=== PATIENT | female | born 1935 | race Caucasian/White ===

== ENCOUNTER 2022-02-03 09:19 | Emergency (ER) | payer MEDICARE, OTHER, SELFPAY ==
--- NOTE | ~2022-02-03 | XR_ITS ---
EXAMINATION: XR LUMBOSACRAL SPINE CLINICAL INFORMATION: Status post fall, low back pain. COMPARISON: None TECHNIQUE: Three views of the lumbosacral spine. FINDINGS: Mild lumbar levoscoliosis is seen with apex at L2-3. There is generalized osteopenia. Mild to moderate multilevel degenerative disc disease is seen. There is mild grade 1 anterolisthesis of L4 over L5. Moderate to severe atherosclerosis is seen in the abdominal aorta and iliac vessels. Bilateral common iliac stents are noted in place. XR/XR lumbar spine 2-3V IMPRESSION: Mild lumbar levoscoliosis and mild to moderate multilevel generative changes with generalized osteopenia. No acute abnormality.
--- NOTE | ~2022-02-03 | CT_ITS ---
EXAMINATION: CT CERVICAL SPINE WITHOUT CONTRAST CLINICAL INFORMATION: History of fall with head strike. COMPARISON: None TECHNIQUE: Multidetector CT imaging examination of the cervical spine is performed. Axial images and multiplanar reformatted images are reviewed. This CT examination was performed using dose optimization techniques as appropriate, variously including the following: *Automated exposure control *Adjustment of mA and/or kV according to patient size (this includes techniques or standardized protocols for targeted exams where dose is matched to indication/reason for exam; i.e. extremities or head) *Use of iterative reconstruction technique DLP: 891 mGy-cm (for CT exams of the head and cervical spine) FINDINGS: Bones are diffusely osteopenic. The skull base, dens and atlantodental articulation are intact. There is a right mastoid effusion. The cervical vertebra are normal in height. No acute fractures in the anterior or posterior elements. No prevertebral soft tissue swelling. The facet arthropathy at C7-T1 is associated with 0.2 cm of degenerative anterolisthesis of C7 on T1. Otherwise, cervical vertebra have normal alignment. Chondrocalcinosis of the spine and sternoclavicular joints. No significant narrowing of the central spinal canal. The degenerative disc space narrowing is mild at C4-C5 and C5-C6, and moderate at C6-C7. The hypertrophied uncovertebral joints at C6-C7 cause moderate bilateral neural foraminal stenosis. No fluid collection or hematoma in the neck. No acute findings within the visualized emphysematous lung apices. Thyroid gland is unremarkable. CT/CT cervical spine wo IV con IMPRESSION: * No acute findings within the degenerated cervical spine. * No evidence of fracture, traumatic subluxation or prevertebral soft tissue swelling. * Mild degenerative anterolisthesis is noted at C7-T1. * Moderate degenerative disc disease and uncovertebral joint hypertrophy at C6-C7. * Emphysematous lung disease.
--- NOTE | ~2022-02-03 | CT_ITS ---
EXAMINATION: CT HEAD WITHOUT CONTRAST CLINICAL INFORMATION: Status post fall with head laceration. COMPARISON: None TECHNIQUE: Contiguous axial imaging was performed from the skull base to vertex without intravenous administration of contrast. Coronal and sagittal reformatted images were obtained. This CT examination was performed using dose optimization techniques as appropriate, variously including the following: *Automated exposure control *Adjustment of mA and/or kV according to patient size (this includes techniques or standardized protocols for targeted exams where dose is matched to indication/reason for exam; i.e. extremities or head) *Use of iterative reconstruction technique DLP: 594.81 mGy-cm FINDINGS: There is mild widening of the cortical sulci and associated ventriculomegaly. Mild to moderate periventricular microvascular changes are seen. The lateral ventricles are symmetrical. The third and fourth ventricles are in their normal midline position. The basilar and prepontine cisterns are unremarkable. There is no acute intra or extracerebral abnormality. There is no mass effect or midline shift. There is a small right posterior parietal subgaleal hematoma and overlying subcutaneous changes. No underlying abnormality. Sections through the bony calvarium are unremarkable. The orbits are intact. The paranasal sinuses are clear. The mastoid air cells hypoaeration on the right with opacified air cells. The left mastoid air cells are unremarkable. CT/CT head/brain wo IV con IMPRESSION: 1. No acute intracranial pathology. 2. Small right posterior subgaleal hematoma in infiltrative changes without acute underlying abnormality.
[2022-02-03 09:21] VITALS: BP 128/90; BP 217/84; PULSE 78; PULSE 95; RESP 20; TEMP 36.5; O2SAT 100; O2SAT 98; BMI 25.6
--- NOTE | 2022-02-03 09:27 | ECG_ITS ---
Test Reason : fall Blood Pressure : / mmHG Vent. Rate : 078 BPM Atrial Rate : 078 BPM P-R Int : 186 ms QRS Dur : 070 ms QT Int : 412 ms P-R-T Axes : 087 075 127 degrees QTc Int : 469 ms Normal sinus rhythm ST & T wave abnormality, consider lateral ischemia Abnormal ECG When compared with ECG of 07-SEP-2019 10:08, T wave inversion more evident in Lateral leads Referred By: Nette Antunez Electronically Signed By:FILIBERTO GARCIA
--- NOTE | 2022-02-03 09:29 | ED_ITS ---
HPI - Fall General Chief Complaint: Fall Stated Complaint: FALL,-THINNERS,+HS,-LOC,+COLLAR Time Seen by Provider: 02/03/22 09:27 Source: patient and EMS Mode of arrival: EMS Limitations: no limitations History of Present Illness HPI Narrative: 86 yo female with history of COPD, rheumatoid arthritis, HTN, HLD, CAD s/p CABG, SBO who presents to the ER from SNF via EMS for evaluation of a fall earlier this morning resulting in a posterior head laceration. Patient reports she was standing with her walker waiting to walk into the bathroom when she stepped backwards, lost her balance and fell backward. She fell onto her bottom and then fell back and hit the back of her head. She did not lose consciousness and she is not on blood thinners. She states her low back hurts since the fall and she has a bleeding cut on the back of her head. No other injuries. MD complaint: fall Onset (ago): minute(s) Fall from: standing Fall witnessed: yes, by living facility staff Place [facility] occurred: [facility] Loss of consciousness: none Prolonged down time: no Symptoms prior to fall: none Context: tripped/slipped (lost balance when stepping backward) Location of injury: head Severity: moderate Severity scale (1-10): 6 Quality: aching Associated symptoms (after fall): headache and other (low back pain) Related Data Previous Rx's Medication Instructions Recorded levofloxacin 250 mg tablet 250 mg PO DAILY #6 tabs 02/03/22 Allergies Allergy/AdvReac Type Severity Reaction Status Date / Time cefaclor [From CECLOR] Allergy Unknown UNKNOWN Unverified 01/19/20 17:21 Penicillins [PCN] Allergy Unknown UNKNOWN Unverified 01/19/20 17:21 tiotropium Allergy Unknown UNKNOWN Unverified 01/19/20 17:21 [From SPIRIVA WITH HANDIHALER] Review of Systems Review of Systems: Constitutional: No Fever, No Chills ENT/Mouth: No sore throat, No Rhinorrhea, No Swallowing Difficulty Eyes: No Eye Pain, No Swelling, No Redness Cardiovascular: No Chest Pain, No SOB, No Orthopnea, No Edema Respiratory: No Cough, No Sputum, No Wheezing, No dyspnea Gastrointestinal: + Nausea, No Vomiting, No Diarrhea, No abdominal Pain, No Hematochezia, No Melena Genitourinary: No Dysuria, No Urinary Frequency, No Hematuria Musculoskeletal: No joint pain, No Myalgias Skin: No Skin Lesions, No rash Neuro: + Weakness, No Numbness, No Dizziness, + Headache Psych: No Anxiety/Panic, No Depression Heme/Lymph: No Bruising, No Lymphadenopathy Endocrine: No Polyuria, No [facility]yd[facility]ia [facility] Social History Social History Advance Directives: No Advance Directives Information Provided: Yes Physical Exam Vital Signs: Vital Signs: Last Vital Signs Temp 97.7 F 02/03/22 09:21 Pulse 76 02/03/22 13:40 Resp 16 02/03/22 13:40 BP 190/77 H 02/03/22 13:40 Pulse Ox 97 02/03/22 13:40 O2 Del Method 02/03/22 13:40 O2 Flow Rate 2 02/03/22 10:11 Oxygen Flow Rate 2 02/03/22 09:21 BMI result Body Mass Index 25.6 Appearance: Alert elderly female in cervical collar on the stretcher. Oriented X3. No acute distress. Head: large hematoma right occipital area with small laceration, active oozing, tender Eyes: Pupils equal, round and reactive to light. ENT: Pharynx normal. Neck: cervical collar in place, no posterior tenderness. CVS: Normal heart rate and rhythm. Pulses normal. Respiratory: No respiratory distress. Breath sounds normal. Abdomen: Soft and nontender. +BS x4 Skin: Skin warm and dry. Normal skin color. Normal skin turgor. No rashes. Extremities: No lower extremity edema. Weak LE bilaterally, unable to lift off of the bed. Neuro: Oriented X 3. LE weakness bilaterally. equal head of it strength, normal speech, no facial droop Course Course Course Narrative: 86-year-old female presents to the ER for evaluation of a fall with head strike. She has a small laceration with 80 large hematoma in the right occipital area. Will require nannette for closure. She is not on anticoagulation and did not lose consciousness. CT head and neck are pending. Will also check EKG and troponin, she was complaining of chest pain last night for which she got nitroglycerin sublingual with resolution. She has no chest pain at this time. She reports some mild nausea. Will get lab workup and monitor closely. Reevaluation(s) Reevaluation #1: CT head:1. No acute intracranial pathology. 2. Small right posterior subgaleal hematoma in infiltrative changes without acute underlying abnormality. CT cervical spine: *? No acute findings within the degenerated cervical spine. *? No evidence of fracture, traumatic subluxation or prevertebral soft tissue swelling. *? Mild degenerative anterolisthesis is noted at C7-T1. *? Moderate degenerative disc disease and uncovertebral joint hypertrophy at C6- C7. *? Emphysematous lung disease. Cervical collar removed and no c-spine tenderness. Normal ROM of the neck. Upon further inspection patient has a small superficial laceration to the right occipitial/parietal area that does not require repair, no active bleeding. XR lumbar spine pending. UA pending. Reevaluation #2: XR lumbar spine: Mild lumbar levoscoliosis and mild to moderate multilevel generative changes with generalized osteopenia. No acute abnormality. Reevaluation #3: UA positive for infection. no leukocytosis or fevers. will start on oral levaquin given her abx allergies. 1st dose given here. her oral antihypertensives have been ordered as well. will arrange transport back to SNF. pt updated on plan of care. MDM - Fall Lab Data Result diagrams: 02/03/22 10:02 02/03/22 12:28 Labs: Lab Results 02/03/22 02/03/22 02/03/22 Range/Units 10:02 10:02 10:02 WBC 9.4 (4.8-10.8) X10*3/uL RBC 4.07 L (4.20-5.50) X10*6/uL Hgb 11.8 L (12.0-16.0) g/dl Hct 36.9 L (37.0-47.0) % MCV 90.7 (80.0-98.0) fL MCH 29.0 (27.0-33.0) pg MCHC 32.0 (31.0-35.0) g/dl RDW 14.4 (11.0-16.0) % Plt Count 209 (160-400) X10*3/uL MPV 10.5 (9.4-12.3) fL Immature Gran % (Auto) 0.6 H (0.0-0.4) % Neut % (Auto) 66.3 (45-73) % Lymph % (Auto) 22.3 (20-40) % [place] % (Auto) 7.5 (2-11) % Eos % (Auto) 2.8 (0-4) % Baso % (Auto) 0.5 (0-2) % Lymph # (Auto) 2.1 (1.2-4.9) X10*3/uL [place] # (Auto) 0.7 (0.1-1.2) X10*3/uL Eos # (Auto) 0.3 (0.0-0.4) X10*3/uL Baso # (Auto) 0.1 (0.0-0.2) X10*3/uL Abs Immat Gran (auto) 0.06 H (0.00-0.03) X10*3/uL Absolute Neuts (auto) 6.2 (2.0-8.3) x10*3/uL Absolute Nucleated RBC 0.000 (0.0-0.012) X10*3/uL Nucleated RBC % (auto) 0.0 (0.0-0.2) /100WBC PT 11.1 (10.0-13.1) SEC INR 1.0 (0.9-1.1) APTT 26.1 (26.0-36.4) SEC Sodium (135-145) mmol/L Potassium (3.3-5.1) mmol/L Chloride (96-108) mmol/L Carbon Dioxide (22-29) mmol/L Anion Gap (12-20) BUN (9-16) mg/dL Creatinine (0.5-1.4) mg/dL Estim Creat Clear Calc Estimated GFR Random Glucose (60-115) mg/dL Calcium (8.4-10.2) mg/dL Magnesium (1.6-2.6) mg/dL Total Bilirubin (0.0-1.0) mg/dL Direct Bilirubin (0.0-0.5) mg/dL AST (5-31) U/L ALT (0-31) U/L Alkaline Phosphatase (39-117) U/L Troponin I High Sens < 3.5 (<3.5-17.0) ng/L Total Protein (6.5-8.0) g/dL Albumin (3.5-5.0) g/dL Urine Color Urine Appearance Urine pH (5.0-9.0) Ur Specific [place] (1.005-1.025) Urine Protein (Neg-Trace) mg/dL Urine Glucose (UA) (Negative) mg/dL Urine Ketones (Negative) mg/dL Urine Blood (Negative) Urine Nitrite (Negative) Ur Leukocyte Esterase (Negative) Urine RBC (0-2) /HPF Urine WBC (0-5) /HPF Ur Squamous Epith Cells (0-2) /HPF Urine Bacteria (None Seen) Hyaline Casts (0-2) /LPF COVID-19 ([facility]) (Negative) COVID-19 Clin Com 02/03/22 02/03/22 02/03/22 Range/Units 10:02 12:28 14:05 WBC (4.8-10.8) X10*3/uL RBC (4.20-5.50) X10*6/uL Hgb (12.0-16.0) g/dl Hct (37.0-47.0) % MCV (80.0-98.0) fL MCH (27.0-33.0) pg MCHC (31.0-35.0) g/dl RDW (11.0-16.0) % Plt Count (160-400) X10*3/uL MPV (9.4-12.3) fL Immature Gran % (Auto) (0.0-0.4) % Neut % (Auto) (45-73) % Lymph % (Auto) (20-40) % [place] % (Auto) (2-11) % Eos % (Auto) (0-4) % Baso % (Auto) (0-2) % Lymph # (Auto) (1.2-4.9) X10*3/uL [place] # (Auto) (0.1-1.2) X10*3/uL Eos # (Auto) (0.0-0.4) X10*3/uL Baso # (Auto) (0.0-0.2) X10*3/uL Abs Immat Gran (auto) (0.00-0.03) X10*3/uL Absolute Neuts (auto) (2.0-8.3) x10*3/uL Absolute Nucleated RBC (0.0-0.012) X10*3/uL Nucleated RBC % (auto) (0.0-0.2) /100WBC PT (10.0-13.1) SEC INR (0.9-1.1) APTT (26.0-36.4) SEC Sodium 141 (135-145) mmol/L Potassium 3.9 (3.3-5.1) mmol/L Chloride 100 (96-108) mmol/L Carbon Dioxide 31 H (22-29) mmol/L Anion Gap 14 (12-20) BUN 11 (9-16) mg/dL Creatinine 0.68 (0.5-1.4) mg/dL Estim Creat Clear Calc 41.1 Estimated GFR > 60 Random Glucose 108 (60-115) mg/dL Calcium 9.7 (8.4-10.2) mg/dL Magnesium 1.7 (1.6-2.6) mg/dL Total Bilirubin 0.4 (0.0-1.0) mg/dL Direct Bilirubin 0.2 (0.0-0.5) mg/dL AST 20 (5-31) U/L ALT 16 (0-31) U/L Alkaline Phosphatase 74 (39-117) U/L Troponin I High Sens (<3.5-17.0) ng/L Total Protein 7.1 (6.5-8.0) g/dL Albumin 4.1 (3.5-5.0) g/dL Urine Color Yellow Urine Appearance Cloudy Urine pH 8.0 (5.0-9.0) Ur Specific [place] 1.015 (1.005-1.025) Urine Protein 30 (1+) H (Neg-Trace) mg/dL Urine Glucose (UA) Negative (Negative) mg/dL Urine Ketones Trace (Negative) mg/dL Urine Blood Trace H (Negative) Urine Nitrite Positive H (Negative) Ur Leukocyte Esterase Large (3+) H (Negative) Urine RBC 3-5 H (0-2) /HPF Urine WBC >50 H (0-5) /HPF Ur Squamous Epith Cells 3-5 (0-2) /HPF Urine Bacteria 4+ (None Seen) Hyaline Casts 0-2 (0-2) /LPF COVID-19 ([facility]) Negative (Negative) COVID-19 Clin Com See Note Discharge Plan Discharge Clinical Impression: Laceration of head, Contusion of lower back, Acute UTI Patient Disposition: er [facility] Instructions: Acute Low Back Pain (ED), Head Laceration (ED) Additional Instructions: Your CT scans and x-rays today did not show any bleeding or fractures. Your lab workup was unremarkable. Recommend tylenol around the clock for pain Use ice to the bump on your head to help decrease swelling Your urine test showed infection Given your antibiotic allergies - recommend levofloxacin 250 mg for the next 6 days. you were given 1st dose today in the ER. Prescriptions: New levofloxacin 250 mg tablet 250 mg PO DAILY Qty: 6 0RF Referrals: Ziggy Calvillo MD [Primary Care Provider] -
--- NOTE | 2022-02-03 09:55 | PC.NURSE ---
Pt alert and oriented x3. Respirations even and unlabored on 2L baseline. C-Collar in place for precaution.
[2022-02-03 10:07] LABS: MANUAL DIFF FLAG NO
[2022-02-03 10:09] LABS: Basophils Absolute Auto 0.1 X10*3/uL (0.0-0.2); Basophils Percent Auto 0.5 % (0-2); Eosinophils Absolute Auto 0.3 X10*3/uL (0.0-0.4); Eosinophils Percent Auto 2.8 % (0-4); Hematocrit 36.9 % (37.0-47.0); Hemoglobin 11.8 g/dl (12.0-16.0); Imm Gran Abs Auto 0.06 X10*3/uL (0.00-0.03); Imm Gran Pct Auto 0.6 % (0.0-0.4); Lymphocytes Absolute Auto 2.1 X10*3/uL (1.2-4.9); Lymphocytes Percent Auto 22.3 % (20-40); Mean Corpuscular Volume 90.7 fL (80.0-98.0); Mean Platelet Volume 10.5 fL (9.4-12.3); Monocytes Absolute Auto 0.7 X10*3/uL (0.1-1.2); Monocytes Percent Auto 7.5 % (2-11); Neutrophils Absolute Auto 6.2 x10*3/uL (2.0-8.3); Neutrophils Percent Auto 66.3 % (45-73); Platelet Count 209 X10*3/uL (160-400); Red Blood Count 4.07 X10*6/uL (4.20-5.50); Red Cell Distribution Width 14.4 % (11.0-16.0); White Blood Count 9.4 X10*3/uL (4.8-10.8)
[2022-02-03 10:11] VITALS: BP 199/73; PULSE 75; RESP 26; O2SAT 100
[2022-02-03 10:31] LABS: Prothrombin Time 11.1 SEC (10.0-13.1)
[2022-02-03 10:33] LABS: COVID-19 Test Negative (Negative); IDNOW Serial# 16C4AD1C
[2022-02-03 10:34] LABS: Partial Thromboplastin Time 26.1 SEC (26.0-36.4)
[2022-02-03 10:35] LABS: Troponin-I High Sensitivity < 3.5 ng/L (<3.5-17.0)
[2022-02-03 12:54] LABS: Alanine Aminotransferase 16 U/L (0-31); Albumin Level 4.1 g/dL (3.5-5.0); Alkaline Phosphatase 74 U/L (39-117); Anion Gap 14 (12-20); Aspartate Amino Transferase 20 U/L (5-31); Bilirubin Direct 0.2 mg/dL (0.0-0.5); Bilirubin Total 0.4 mg/dL (0.0-1.0); Blood Urea Nitrogen 11 mg/dL (9-16); Calcium 9.7 mg/dL (8.4-10.2); Carbon Dioxide 31 mmol/L (22-29); Chloride 100 mmol/L (96-108); Creatinine Clr Calc Pharmacy 41.1; Estimated Glomerular Filt Rate > 60; Glucose Random 108 mg/dL (60-115); Magnesium 1.7 mg/dL (1.6-2.6); Potassium 3.9 mmol/L (3.3-5.1); Sodium 141 mmol/L (135-145); Total Protein 7.1 g/dL (6.5-8.0)
[2022-02-03] MEDS: Acetaminophen 325 MG TABLET 975 MG PO (13:32)
[2022-02-03 13:40] VITALS: BP 190/77; PULSE 76; RESP 16; O2SAT 97
[2022-02-03] MEDS: Metoprolol Tartrate 25 MG TABLET PO (13:55)
[2022-02-03] MEDS: amLODIPine Besylate 2.5 MG TABLET PO (14:00)
[2022-02-03 14:12] LABS: Appearance Urine Cloudy; Color Urine Yellow; Glucose Urine UA Negative (Negative); Leukocyte Esterase Urine Large (3+) (Negative); Nitrite Urine Positive (Negative); Specific Gravity - Urine 1.015 (1.005-1.025); UMIC TRIGGER UACC YES; Urine Blood Trace (Negative); Urine Ketones Trace mg/dL (Negative); Urine Protein 30 (1+) mg/dL (Neg-Trace)
[2022-02-03 14:19] LABS: Bacteria Urine 4+ (None Seen); Hyaline Casts Urine 0-2 /LPF (0-2); UACC Culture Trigger YES; WBC Urine >50 /HPF (0-5)
[2022-02-03] MEDS: levoFLOXacin 250 MG TABLET PO (15:06)
== END 2022-02-03 15:21 | disposition skilled nursing facility (03) ==
PROVIDERS: Physician Assistant; Emergency Provider Emergency Medicine; PCP Family Medicine
DX: S01.01XA Laceration without foreign body of scalp, initial encounter (principal); S30.0XXA Contusion of lower back and pelvis, initial encounter; W17.89XA Other fall from one level to another, initial encounter; N39.0 Urinary tract infection, site not specified; Y93.89 Activity, other specified; Y92.121 Bathroom in nursing home as the place of occurrence of the external cause; Y99.9 Unspecified external cause status; Z20.822 Contact with and (suspected) exposure to COVID-19
CPT/HCPCS: 70450; 72100; 72125; 80048; 80076; 81001; 83735; 84484; 85025; 85610; 85730; 87086; 87635; 93005; 99284; 99285

== ENCOUNTER 2023-04-06 00:30 | Emergency (ER) | payer MEDICARE, MEDICAID, OTHER, SELFPAY ==
--- NOTE | 2023-04-06 | ECG_ITS ---
Test Reason : chest pain Blood Pressure : / mmHG Vent. Rate : 078 BPM Atrial Rate : 078 BPM P-R Int : 184 ms QRS Dur : 062 ms QT Int : 414 ms P-R-T Axes : 075 068 102 degrees QTc Int : 471 ms Normal sinus rhythm Septal infarct , age undetermined ST depression lateral leads Abnormal ECG No significant changes when compared with the previous EKG of feb 03 2022 Referred By: Generic ED Physician Electronically Signed By:MEDARDO UPTON
--- NOTE | ~2023-04-06 | XR_ITS ---
EXAMINATION: XR CHEST CLINICAL INFORMATION: Chest pain COMPARISON: 09/20/2019 TECHNIQUE: 2 views of the chest were obtained. FINDINGS: Lung volumes are symmetric. Bibasilar aeration appears overall improved compared to prior. There is mild residual streaky left basilar opacity favoring atelectasis. No evidence of pneumothorax, significant pleural effusion, or overt pulmonary edema. Cardiac size is within normal limits. Calcification is present at the aortic arch. No acute osseous findings are seen. XR/XR chest 2V IMPRESSION: Improved bibasilar aeration compared to prior with mild residual left basilar atelectasis.
[2023-04-06 00:50] VITALS: BP 122/80; PULSE 80; O2SAT 96; BMI 22.2
[2023-04-06 00:53] VITALS: BP 124/54; PULSE 79; RESP 29; O2SAT 94
[2023-04-06 01:07] VITALS: PULSE 75
[2023-04-06 01:28] LABS: Alanine Aminotransferase 15 U/L (0-31); Albumin Level 3.7 g/dL (3.5-5.0); Alkaline Phosphatase 72 U/L (39-117); Anion Gap 15 (12-20); Aspartate Amino Transferase 28 U/L (5-31); Bilirubin Total 0.3 mg/dL (0.0-1.0); Blood Urea Nitrogen 17 mg/dL (9-16); Calcium 9.1 mg/dL (8.4-10.2); Carbon Dioxide 20 mmol/L (22-29); Chloride 107 mmol/L (96-108); Creatinine Clr Calc Pharmacy 32.6; Estimated Glomerular Filt Rate > 60; Glucose Random 97 mg/dL (60-115); Potassium 4.9 mmol/L (3.3-5.1); Sodium 137 mmol/L (135-145); Total Protein 7.6 g/dL (6.5-8.0)
[2023-04-06 01:30] LABS: Troponin-I High Sensitivity 5.6 ng/L (<3.5-17.0)
[2023-04-06 01:48] LABS: Influenza A PCR NEGATIVE (Negative); Influenza B PCR NEGATIVE (Negative); Resp Syncy Virus RNA Qual PCR NEGATIVE (Negative); SARS COV2 PCR INHOUSE NEGATIVE (Negative)
--- NOTE | 2023-04-06 02:08 | PC.NURSE ---
call opal robison/ any updates/ questions: [phone]
[2023-04-06 02:22] LABS: Basophils Absolute Auto 0.1 X10*3/uL (0.0-0.2); Basophils Percent Auto 0.8 % (0-2); Eosinophils Absolute Auto 0.3 X10*3/uL (0.0-0.4); Eosinophils Percent Auto 3.4 % (0-4); Hematocrit 34.7 % (37.0-47.0); Hemoglobin 11.2 g/dl (12.0-16.0); Imm Gran Abs Auto 0.02 X10*3/uL (0.00-0.03); Imm Gran Pct Auto 0.2 % (0.0-0.4); Lymphocytes Absolute Auto 3.1 X10*3/uL (1.2-4.9); Lymphocytes Percent Auto 34.5 % (20-40); Mean Corpuscular HGB Conc 32.3 g/dl (31.0-35.0); Mean Corpuscular Hemoglobin 30.4 pg (27.0-33.0); Mean Platelet Volume 11.3 fL (9.4-12.3); Monocytes Absolute Auto 0.9 X10*3/uL (0.1-1.2); Monocytes Percent Auto 9.8 % (2-11); Neutrophils Absolute Auto 4.6 x10*3/uL (2.0-8.3); Neutrophils Percent Auto 51.3 % (45-73); Platelet Count 237 X10*3/uL (160-400); Red Blood Count 3.69 X10*6/uL (4.20-5.50); Red Cell Distribution Width 14.4 % (11.0-16.0)
[2023-04-06 02:28] LABS: MANUAL DIFF FLAG NO
--- NOTE | 2023-04-06 03:05 | ED.CHESTPAIN ---
HPI - Chest Pain General Chief Complaint: Chest Pain Stated Complaint: Chest pain Time Seen by Provider: 04/06/23 03:05 History of Present Illness HPI narrative: The patient is an 87-year-old woman who lives at the [facility]. She is on 2 L home oxygen. She is nonambulatory at baseline. I believe she is on rivaroxaban. She has a history of an NSTEMI in the past. Over the last several nights she has had episodes of chest discomfort that have improved with nitroglycerin. These episodes have not last very long because they give her the nitroglycerin quickly. Tonight she had another episode and the staff at the residential called 911. Apparently when paramedics arrived she had it at a 10 pain. She was given nitroglycerin by the facility just before leaving the facility and her pain had resolved by the time she got here she denies shortness of breath. She has had a chronic cough for the last few months. She has some redness to the left eye that she says has been present for about a week or 2. She says she has been taking antibiotic eyedrops at the facility. Related Data Previous Rx's Medication Instructions Recorded levofloxacin 250 mg tablet 250 mg PO DAILY #6 tabs 02/03/22 Allergies Allergy/AdvReac Type Severity Reaction Status Date / Time cefaclor [From CECLOR] Allergy Unknown UNKNOWN Verified 04/06/23 00:53 Penicillins [PCN] Allergy Unknown UNKNOWN Verified 04/06/23 00:53 tiotropium Allergy Unknown UNKNOWN Verified 04/06/23 00:53 [From SPIRIVA WITH HANDIHALER] [facility] Social History Social History Advance Directives: No Advance Directives Information Provided: No Physical Exam Vital Signs: Vital Signs: Last Vital Signs Temp 98.0 F 04/06/23 07:12 Pulse 70 04/06/23 07:12 Resp 22 H 04/06/23 07:12 BP 136/58 L 04/06/23 07:12 Pulse Ox 99 04/06/23 07:12 O2 Del Method Nasal Cannula 04/06/23 07:12 O2 Flow Rate 2 04/06/23 07:12 BMI result Body Mass Index 22.2 Const: Other: The patient is a frail, chronically ill-appearing 87-year-old who was awake and alert coherent. He does not appear in any distress or discomfort. HEENT: Other: Face is symmetrical. Mucous membranes moist. Eyes: Other: Pupils are round equal. Left eye shows some mild conjunctival injection and discharge. Neck: Other: No JVD Resp: Other: Lungs are clear bilaterally Cardio: Other: The patient has a regular rate and rhythm without murmur GI: Other: The abdomen is soft nontender Skin: Other: Skin is dry and unremarkable Neuro: Other: Patient is awake and alert and oriented. Cranial nerves are grossly intact. She moves her extremities symmetrically. No focal findings. Extrem: Other: No calf swelling or tenderness or asymmetry. Medical Decision Making Medical Decision Making [facility] Narrative: The patient is a very pleasant 87-year-old who lives at the [facility] where she has lived for the last 3 years. She is nonambulatory. She has been having episodes of chest pain seemed to respond to nitroglycerin. Her EKG today is not obviously ischemic and her pain is resolved entirely. Her troponin is flat. My suspicion for an acute coronary syndrome is low. I think she may return to her residential. She should follow up with her hot plate press operator and regular doctor. Return if worse. Lab Data 04/06/23 02:05 04/06/23 01:04 Labs: Lab Results 04/06/23 04/06/23 04/06/23 Range/Units 01:03 01:04 02:05 WBC 9.0 (4.8-10.8) X10*3/uL RBC 3.69 L (4.20-5.50) X10*6/uL Hgb 11.2 L (12.0-16.0) g/dl Hct 34.7 L (37.0-47.0) % MCV 94.0 (80.0-98.0) fL MCH 30.4 (27.0-33.0) pg MCHC 32.3 (31.0-35.0) g/dl RDW 14.4 (11.0-16.0) % Plt Count 237 (160-400) X10*3/uL MPV 11.3 (9.4-12.3) fL Immature Gran % (Auto) 0.2 (0.0-0.4) % Neut % (Auto) 51.3 (45-73) % Lymph % (Auto) 34.5 (20-40) % [place] % (Auto) 9.8 (2-11) % Eos % (Auto) 3.4 (0-4) % Baso % (Auto) 0.8 (0-2) % Lymph # (Auto) 3.1 (1.2-4.9) X10*3/uL [place] # (Auto) 0.9 (0.1-1.2) X10*3/uL Eos # (Auto) 0.3 (0.0-0.4) X10*3/uL Baso # (Auto) 0.1 (0.0-0.2) X10*3/uL Abs Immat Gran (auto) 0.02 (0.00-0.03) X10*3/uL Absolute Neuts (auto) 4.6 (2.0-8.3) x10*3/uL Absolute Nucleated RBC 0.000 (0.0-0.012) X10*3/uL Nucleated RBC % (auto) 0.0 (0.0-0.2) /100WBC Sodium 137 (135-145) mmol/L Potassium 4.9 D (3.3-5.1) mmol/L Chloride 107 (96-108) mmol/L Carbon Dioxide 20 L (22-29) mmol/L Anion Gap 15 (12-20) BUN 17 H (9-16) mg/dL Creatinine 0.77 (0.5-1.4) mg/dL Estim Creat Clear Calc 32.6 Estimated GFR > 60 Random Glucose 97 (60-115) mg/dL Calcium 9.1 D (8.4-10.2) mg/dL Total Bilirubin 0.3 (0.0-1.0) mg/dL AST 28 (5-31) U/L ALT 15 (0-31) U/L Alkaline Phosphatase 72 (39-117) U/L Troponin I High Sens 5.6 (<3.5-17.0) ng/L Total Protein 7.6 (6.5-8.0) g/dL Albumin 3.7 (3.5-5.0) g/dL Influenza Type A (PCR) NEGATIVE (Negative) Influenza Type B (PCR) NEGATIVE (Negative) RSV RNA Qual (PCR) NEGATIVE (Negative) SARS-CoV-2 RNA (RT-PCR) NEGATIVE (Negative) 04/06/23 Range/Units 03:37 WBC (4.8-10.8) X10*3/uL RBC (4.20-5.50) X10*6/uL Hgb (12.0-16.0) g/dl Hct (37.0-47.0) % MCV (80.0-98.0) fL MCH (27.0-33.0) pg MCHC (31.0-35.0) g/dl RDW (11.0-16.0) % Plt Count (160-400) X10*3/uL MPV (9.4-12.3) fL Immature Gran % (Auto) (0.0-0.4) % Neut % (Auto) (45-73) % Lymph % (Auto) (20-40) % [place] % (Auto) (2-11) % Eos % (Auto) (0-4) % Baso % (Auto) (0-2) % Lymph # (Auto) (1.2-4.9) X10*3/uL [place] # (Auto) (0.1-1.2) X10*3/uL Eos # (Auto) (0.0-0.4) X10*3/uL Baso # (Auto) (0.0-0.2) X10*3/uL Abs Immat Gran (auto) (0.00-0.03) X10*3/uL Absolute Neuts (auto) (2.0-8.3) x10*3/uL Absolute Nucleated RBC (0.0-0.012) X10*3/uL Nucleated RBC % (auto) (0.0-0.2) /100WBC Sodium (135-145) mmol/L Potassium (3.3-5.1) mmol/L Chloride (96-108) mmol/L Carbon Dioxide (22-29) mmol/L Anion Gap (12-20) BUN (9-16) mg/dL Creatinine (0.5-1.4) mg/dL Estim Creat Clear Calc Estimated GFR Random Glucose (60-115) mg/dL Calcium (8.4-10.2) mg/dL Total Bilirubin (0.0-1.0) mg/dL AST (5-31) U/L ALT (0-31) U/L Alkaline Phosphatase (39-117) U/L Troponin I High Sens 5.1 (<3.5-17.0) ng/L Total Protein (6.5-8.0) g/dL Albumin (3.5-5.0) g/dL Influenza Type A (PCR) (Negative) Influenza Type B (PCR) (Negative) RSV RNA Qual (PCR) (Negative) SARS-CoV-2 RNA (RT-PCR) (Negative) Independent Interpretation I performed an independent interpretation of an: EKG Interpretation: EKG at 00:43 shows normal sinus rhythm at 78 beats per minute. No obvious acute ischemic changes. No previous EKGs available for comparison. The EMR suggestive should be and EKG available for comparison from 02/03/2022 but the EMR does not open this for me to visualize. Discharge Plan Discharge Clinical Impression: Chest pain Patient Disposition: [facility] Transfer Details: BACK TO [facility] Additional Instructions: Your testing today seems quite reassuring. There is no sign of a heart attack or other obvious acute process. Please continue your regular medications. Please consider following up with your hot plate press operator. Return to the emergency room if worse. Prescriptions: No Action levofloxacin 250 mg tablet 250 mg PO DAILY Qty: 6 0RF Referrals: [facility] [Outside] Ziggy Calvillo MD [Primary Care Provider] - Sharif Abreu MD [Physician] -
[2023-04-06 03:30] VITALS: BP 145/52; PULSE 71; RESP 26; O2SAT 99
[2023-04-06 04:02] LABS: Troponin-I High Sensitivity 5.1 ng/L (<3.5-17.0)
--- NOTE | 2023-04-06 04:30 | MHC.EDTECH ---
CALL OUT TO [facility]ET AT [phone] TO BOOK TRANSPORT FOR PT BACK TO [facility], ESTIMATED ETA GIVEN WAS [phone]
[2023-04-06 07:12] VITALS: BP 136/58; PULSE 70; RESP 22; TEMP 36.7; O2SAT 99
--- NOTE | 2023-04-06 07:13 | PC.NURSE ---
pt sleeping, wakes to verbal stimulus, vss, denies pain at this time, awaiting ems to return pt back to facility, will continue to monitor
--- NOTE | 2023-04-06 09:35 | PC.NURSE ---
mine shifter called report to facility as this pt was supposed to be discharged prior to this nurse coming in
== END 2023-04-06 09:35 | disposition skilled nursing facility (03) ==
PROVIDERS: Emergency Provider Emergency Medicine; PCP Family Medicine
DX: R07.89 Other chest pain (principal); R05.9 Cough, unspecified; Z99.81 Dependence on supplemental oxygen; Z79.899 Other long term (current) drug therapy; Z20.822 Contact with and (suspected) exposure to COVID-19; Z20.828 Contact with and (suspected) exposure to other viral communicable diseases
CPT/HCPCS: 0241U; 36415; 71046; 80053; 84484; 85025; 93005; 99283; 99285

== ENCOUNTER → 2023-04-06 00:43 | Outpatient (BNV) | payer MEDICARE, MEDICAID, OTHER, SELFPAY | PROVIDERS: Emergency Provider Emergency Medicine; PCP Family Medicine; Visit Provider Internal Medicine | DX: R07.9 Chest pain, unspecified (principal); R94.31 Abnormal electrocardiogram [ECG] [EKG] | CPT/HCPCS: 93010 ==